=== PATIENT | male | born 1985 | race Hispanic/Latino ===

== ENCOUNTER 2019-01-16 16:46 | Emergency (ER) | payer OTHER ==
[2019-01-16] MEDS ORDERED: DEXAMETHASONE SOD PHOSPHATE 10MG/ML 1ML VIAL ONE (16:51)
[2019-01-16] MEDS ORDERED: DIPHENHYDRAMINE HCL 25 MG CAPSULE ONE (16:51)
== END 2019-01-16 19:03 | disposition home or self-care (01) ==
LOC: EDH 16:46
DX: L50.0 Allergic urticaria (principal)
CPT/HCPCS: 96372; 99283; J1100; Q0163